=== PATIENT | male | born 1965 | race Caucasian/White ===

== ENCOUNTER → 2016-12-02 | Day surgery (SDC) | payer OTHER ==
[~2016-12-02] VITALS: Ht 190.5 cm; Wt 96.2 kg
[~2016-12-02] MED LIST: ALL DAY ALLERGY10 MG PO; MOTRIN IB200 M1 PO; PRAVASTATIN SOD40 MG PO; VIAGRA50 MG PO; VITAMIN D-32000 UNIT PO
--- NOTE | ~2016-12-02 | O ---
[place], [place] OPERATIVE NOTE NAME: CHICA COHEN UNIT #: [id number] ROOM: DOCTOR: INEZ GRESHAM MD BIRTHDATE: [birth year] DOS: 12/02/2016 GASTROENDOSCOPIC REPORT. This gentleman is 51-year-old who is undergoing colonic screening study. FAMILY HISTORY: Noncontributory. ALLERGIES: No known medication. PAST MEDICAL HISTORY: Associated with hypercholesterolemia. PAST SURGICAL HISTORY: Associated with umbilical hernia repair in pediatric age. SOCIAL HISTORY: Nonsmoker; however, alcohol consumer. PROCEDURE: Today's procedure part of investigation is colonoscopy. PREMEDICATION: Versed and Diprivan. SCOPE: Olympus folding colonoscope . REPORT: After putting the patient in the left lateral position and after application of lubricant to the scope, the scope was introduced. Thereafter, under direct visualization, I advanced through the length of colon without difficulty. Rare diverticulosis in sigmoid colon identified, photographed. Base of the cecum explored, appendiceal orifice identified. Ileocecal valve was defined. Colonic prep was fair in which still was residual stool present in the colon; however, we achieved visualization of the appendix and ileocecal valve. The scope was gradually withdrawn from ascending, transverse, descending colon. The patient extubated, tolerated procedure well. IMPRESSION: Diverticulosis. PLAN AND DISCUSSION: High fiber diet. Follow up routinely with you in office, p.r.n. visit with us in [facility]. Otherwise, colonoscopic follow up in 10 years. Thank you very much indeed for your kind referral. [place], [place] OPERATIVE NOTE NAME: CHICA COHEN UNIT #: [id number] ROOM: DOCTOR: INEZ GRESHAM MD BIRTHDATE: [birth year] INEZ GRESHAM MD CM:OPRECORD:OPERATIVE NOTE 1009 [id number] KEITH GRESHAM MD 12/05/16 1342 interface
[2016-12-02 09:30] VITALS: BP 148/87
[2016-12-02 10:05] VITALS: BP 113/77
[2016-12-02 10:20] VITALS: BP 115/74
[2016-12-02 10:39] VITALS: BP 120/76
== END | disposition home or self-care (01) ==
LOC: SDC 11-27 08:45
DX: Z12.11 Encounter for screening for malignant neoplasm of colon (principal); K57.30 Diverticulosis of large intestine without perforation or abscess without bleeding; Z80.0 Family history of malignant neoplasm of digestive organs; E78.00 Pure hypercholesterolemia, unspecified; Z98.890 Other specified postprocedural states; Z87.891 Personal history of nicotine dependence